=== PATIENT | male | born 1990 | race African-American/Black ===

== ENCOUNTER 2017-06-26 09:43 | Inpatient (IN) | payer OTHER, MEDICAID ==
[~2017-06-26] VITALS: Ht 167.6 cm; Wt 61.2 kg
[~2017-06-26 09:43] MED LIST: INHALER
[2017-06-26] MEDS ORDERED: SODIUM CHLORIDE 0.9% 1,000 ML IV ONE (10:25)
[2017-06-26] MEDS ORDERED: MORPHINE SULFATE 4 MG/ML CPJ (NOT FOR IM USE) IV STA (10:25)
[2017-06-26] MEDS ORDERED: ONDANSETRON HCL 4MG/2ML VIAL IV STA (10:25)
[2017-06-26 10:39] LABS: BASOPHILS % 1.1 % (0.0-2.0); EOSINOPHILS % 1.6 % (0.0-5.0); HEMATOCRIT. 44.1 % (42.0-52.0); HEMOGLOBIN. 15.2 g/dL (14.0-18.0); LYMPHOCYTES % 26.4 % (20.0-50.0); MEAN CORPUSCULAR HEMOGLOBIN 31.2 pg (28.0-32.0); MEAN CORPUSCULAR VOLUME 90.4 fL (80.0-94.0); MEAN PLATELET VOLUME 8.4 fl (7.4-10.4); MONOCYTES % 9.6 % (2.0-8.0); NEUTROPHILS % 61.3 % (40.0-76.0); PLATELET 244 x1000/uL (130-400); RED BLOOD CELL COUNT 4.87 mill/uL (4.7-6.1); RED CELL DISTRIBUTION WIDTH 14.1 % (11.6-14.6)
[2017-06-26 10:47] LABS: PROTHROMBIN TIME 10.5 sec (9.4-11.6)
[2017-06-26 10:48] LABS: CHLORIDE 106 mEq/L (98-107)
[2017-06-26 10:57] LABS: CARBON DIOXIDE 26 mEq/L (21-32)
[2017-06-26 11:31] LABS: CLARITY URINE TURBID (CLEAR); COLOR URINE YELLOW (YELLOW); GLUCOSE URINE NEGATIVE (NEGATIVE); KETONES URINE 1+ (NEGATIVE); LEUKOCYTE ESTERASE URINE 1+ (NEGATIVE); NITRITE URINE NEGATIVE (NEGATIVE); OCCULT BLOOD URINE TRACE (NEGATIVE); PH URINE >=9.0 (4.5-8.0); PROTEIN URINE TRACE (NEGATIVE); SPECIFIC GRAVITY URINE 1.025 (1.005-1.030)
[2017-06-26] MEDS ORDERED: IOHEXOL-300 100 ML BOTTLE ONE (12:08)
[2017-06-26] MEDS ORDERED: PIPERACILLIN/TAZ 3.375G PREMIX 50 ML IV ONE (13:00)
[2017-06-26] MEDS ORDERED: TAMSULOSIN HCL 0.4MG SR CAPSULE PO ONE (13:00)
[2017-06-26] MEDS ORDERED: GENTAMICIN 80MG PREMIX 100 ML IV ONE (13:15)
[2017-06-26 19:15] VITALS: BP 115/58
[2017-06-26 20:00] VITALS: BP 106/62
[2017-06-26] MEDS ORDERED: ONDANSETRON HCL 4MG/2ML VIAL IV PRN (21:00)
[2017-06-26] MEDS ORDERED: MORPHINE SULFATE 4 MG/ML CPJ (NOT FOR IM USE) IV PRN (21:00)
[2017-06-26] MEDS: SODIUM CHLORIDE 0.9% 1,000 ML IV SCH (21:47)
[2017-06-26] MEDS ORDERED: CEFTRIAXONE 1 G PREMIX 50 ML IV SCH (23:00)
[2017-06-27] VITALS: BP 101/50
[2017-06-27 04:00] VITALS: BP 91/41
[2017-06-27 07:38] VITALS: BP 99/54
[2017-06-27] MEDS ORDERED: TAMSULOSIN HCL 0.4MG SR CAPSULE PO SCH (09:00)
[2017-06-27] MEDS: SODIUM CHLORIDE 0.9% 1,000 ML IV SCH (10:31)
[2017-06-27] MEDS ORDERED: KETOROLAC 30MG/ML VIAL IV PRN (10:45)
[2017-06-27 12:00] VITALS: BP 108/63
[2017-06-27 15:04] VITALS: BP 105/78
[2017-06-27 15:50] VITALS: BP 113/68
== END 2017-06-27 17:12 | disposition home or self-care (01) | DRG 463 ==
LOC: ER 09:46 → 8WST 17:40 → ENRESERV 18:11
PROVIDERS: ADMIT Internal Medicine; ATTEND Internal Medicine
DX: N39.0 Urinary tract infection, site not specified (principal); N17.9 Acute kidney failure, unspecified; E86.0 Dehydration; N13.2 Hydronephrosis with renal and ureteral calculous obstruction
CPT/HCPCS: 36415; 74177; 80053; 81001; 83690; 85025; 85610; 87086; 96365; 96375; 99285; J0696; J1580; J2270; J2405; J2543; J7030; Q9967